=== PATIENT | male | born 1955 | race Caucasian/White ===

== ENCOUNTER 2018-06-24 09:52 | Emergency (ER) | payer BC ==
--- NOTE | 2018-06-24 10:26 | EDM.PDOC ---
ED HPI GENERAL MEDICAL PROBLEM - General Chief Complaint: Respiratory Problem Stated Complaint: chills, cough, pluerisy Time Seen by Provider: 06/24/18 10:09 Source of Information: Reports: Patient History Limitations: Reports: No Limitations - History of Present Illness INITIAL COMMENTS - FREE TEXT/NARRATIVE: Patient comes with 3-4 week history of cough. Has not improved. Intermittent chills/hot flashes but no specific fevers. Does smoke a few times a week. Chest discomfort with coughing, but not with breathing. Mild SOB. Green sputum/ minimal amount. Not coughing much up. Similar episodes one year ago that improved after several rounds of antibiotics. Denies HEENT changes. No sore throat/congestion. No hematemesis. No GI changes such as nausea/emesis/loose stools. Denies abdominal pain. No other new pain complaints. Does have his baseline neuropathy pain. No new neuro changes. Works ab [employer]. Pluertic Chest Pain Score (Numeric/FACES): 9 Hand/Feet Neuropathy Pain Score (Numeric/FACES): 10 - Related Data Allergies Allergy/AdvReac Type Severity Reaction Status Date / Time morphine Allergy Itching Verified 06/24/18 09:54 Home Meds: Home Meds Albuterol [Ventolin HFA] 1 puff INH Q6H PRN #1 puff 06/24/18 [Rx] Doxycycline [Vibramycin] 100 mg PO BID #10 cap 06/24/18 [Rx] Gabapentin [Neurontin] 300 mg PO QID 06/24/18 [History] Hydrocodone/Acetaminophen [Hydrocodon-Acetaminophen 5-325] 1 each PO Q4HR PRN [History] fentaNYL [Duragesic] 75 mcg TD Q3D 06/24/18 [History] guaiFENesin [Robitussin] 200 mg PO Q4H PRN 06/24/18 [History] Past Medical History HEENT History: Reports: Impaired Vision Cardiovascular History: Reports: None Respiratory History: Reports: None Genitourinary History: Reports: None Neurological History: Reports: None Psychiatric History: Reports: None Oncologic (Cancer) History: Reports: Colon, Prostate Dermatologic History: Reports: None - Infectious Disease History Infectious Disease History: Reports: None - Past Surgical History Head Surgeries/Procedures: Reports: None HEENT Surgical History: Reports: None Cardiovascular Surgical History: Reports: None Respiratory Surgical History: Reports: None GI Surgical History: Reports: Colon, Hernia, Abdominal, Other (See Below) Other GI Surgeries/Procedures: colon resection Male Surgical History: Reports: Prostate Biopsy, Prostatectomy Social & Family History - Tobacco Use Smoking Status *Q: Current Some Day Smoker ED ROS GENERAL - Review of Systems Review Of Systems: ROS reveals no pertinent complaints other than HPI. ED EXAM, GENERAL - Physical Exam Exam: See Below Exam Limited By: No Limitations General Appearance: Alert, WD/WN, No Apparent Distress, Other (appears tired) Eye Exam: Bilateral Eye: EOMI, PERRL Ears: Normal External Exam Nose: No: Nasal Deformity, Nasal Swelling, Nasal Drainage Throat/Mouth: Normal Lips, Normal Voice, No Airway Compromise Head: Atraumatic, Normocephalic Neck: Supple, Non-Tender Respiratory/Chest: No Respiratory Distress, Lungs Clear, Normal Breath Sounds, No Accessory Muscle Use, Chest Non-Tender Cardiovascular: Regular Rate, Rhythm, No Murmur GI/Abdominal: Soft, Non-Tender (Male) Exam: Deferred Rectal (Males) Exam: Deferred Back Exam: No: CVA Tenderness (L), CVA Tenderness (R), Muscle Spasm, Paraspinal Tenderness, Vertebral Tenderness Extremities: Normal Capillary Refill Neurological: Alert, Oriented, Normal Cognition, Other (equal strength bilaterally) Psychiatric: Normal Affect, Normal Mood Skin Exam: Warm, Dry, Intact, Normal Color Course - Vital Signs Last Recorded V/S: Last Vital Signs Temp 36.4 C 06/24/18 09:55 Pulse 87 06/24/18 09:55 Resp 18 06/24/18 09:55 BP 118/85 06/24/18 09:55 Pulse Ox 99 06/24/18 09:55 - Orders/Labs/Meds Orders: Active Orders 24 hr Category Date Time Status RT Aerosol Therapy [RC] ASDIRECTED Care 06/24/18 11:15 Ordered Chest 2V [CR] Stat Exams 06/24/18 10:11 Ordered Labs: Laboratory Tests 06/24/18 06/24/18 Range/Units 10:18 10:18 WBC 7.7 (4.0-10.2) K/uL RBC 4.86 (4.33-5.41) M/uL Hgb 14.7 (13.1-16.8) g/dL Hct 43.7 (39.0-49.0) % MCV 89.9 (84.0-98.0) fL MCH 30.2 (28.2-33.3) pg MCHC 33.6 (31.7-36.0) g/dL RDW 13.5 (11.2-14.1) % Plt Count 283 (150-350) K/uL Neut % (Auto) 82.6 H (45.0-80.0) % Lymph % (Auto) 10.9 (10.0-50.0) % [place] % (Auto) 5.3 (2.0-14.0) % Eos % (Auto) 0.9 (0.0-5.0) % Baso % (Auto) 0.3 (0.0-2.0) % Neut # (Auto) 6.38 (1.40-7.00) K/uL Lymph # (Auto) 0.84 (0.50-3.50) K/uL [place] # (Auto) 0.41 (0.00-1.00) K/uL Eos # (Auto) 0.07 (0.00-0.50) K/uL Baso # (Auto) 0.02 (0.00-0.20) K/uL Sodium 139 (136-145) mmol/L Potassium 4.0 (3.5-5.1) mmol/L Chloride 103 (98-107) mmol/L Carbon Dioxide 26.1 (21.0-32.0) mmol/L BUN 19 H (7-18) mg/dL Creatinine 0.72 (0.51-1.17) mg/dL Est Cr Clr Drug Dosing 101.08 mL/min Estimated GFR (MDRD) > 60 mL/min Glucose 134 H (74-106) mg/dL Calcium 8.7 (8.5-10.1) mg/dL Total Bilirubin 0.6 (0.2-1.0) mg/dL AST 17 (15-37) U/L ALT 23 (12-78) U/L Alkaline Phosphatase 77 (46-116) IU/L Total Protein 7.0 (6.4-8.2) g/dL Albumin 3.6 (3.4-5.0) g/dL Meds: Medications Discontinued Medications Generic Name Dose Route Start Last Admin Trade Name Freq PRN Reason Stop Dose Admin Albuterol/Ipratropium 3 ml 06/24/18 11:15 06/24/18 11:31 Duoneb 3.0-0.5 Mg/3 Ml NEB 06/24/18 11:16 3 ml ONETIME ONE Administration - Radiology Interpretation Free Text/Narrative:: Xray of chest showed no focal infiltrates - Re-Assessments/Exams Free Text/Narrative Re-Assessment/Exam: 06/24/18 12:07 Normal CBC/Chem. Given prolonged course of illness and lack of improvement will treat with Doxy for 10 days. This will help cover atypical organisms. To follow up as needed if no improvement or worsening is noted. Taken off work from [employer] for 72 hours. Rx for albuterol inhaler given. Received to-go Doxy from ER stock today but will chart picker remaining pills from pharmacy. Departure - Departure Time of Disposition: 11:54 Disposition: Home, Self-Care 01 Condition: Good Clinical Impression: Bronchitis - Discharge Information *PRESCRIPTION DRUG MONITORING PROGRAM REVIEWED*: Not Applicable *COPY OF PRESCRIPTION DRUG MONITORING REPORT IN PATIENT JOSE: Not Applicable Prescriptions: Albuterol [Ventolin HFA] 1 puff INH Q6H PRN #1 puff PRN Reason: Cough Doxycycline [Vibramycin] 100 mg PO BID #10 cap Instructions: How to Use a Metered Dose Inhaler Referrals: Marko Townsend PA-C [Primary Care Provider] - Forms: ED Department Discharge Additional Instructions: Follow up as needed if your symptoms worsen or do not show improvement by end of antibiotic course. Avoid smoking. Of course completely quitting smoking is advised. See if the inhaler helps with the coughing/chest tightness. - My Orders Last 24 Hours: My Active Orders 06/24/18 10:11 Chest 2V [CR] Stat 06/24/18 11:15 RT Aerosol Therapy [RC] ASDIRECTED - Assessment/Plan Last 24 Hours: My Active Orders 06/24/18 10:11 Chest 2V [CR] Stat 06/24/18 11:15 RT Aerosol Therapy [RC] ASDIRECTED
[2018-06-24 10:38] LABS: CHLORIDE,CL 103 mmol/L (98-107); SODIUM,NA 139 mmol/L (136-145)
[2018-06-24] MEDS ORDERED: Albuterol/Ipratropium 3.0-0.5 MG/3 ML Neb Soln NEB ONE (11:15)
[2018-06-24] MEDS ORDERED: Albuterol/Ipratropium 3.0-0.5 MG/3 ML Neb Soln ONE (11:25)
== END 2018-06-24 12:20 | disposition home or self-care (01) ==
LOC: LL.ED 09:52
DX: J40 Bronchitis, not specified as acute or chronic (principal); F17.290 Nicotine dependence, other tobacco product, uncomplicated; Z79.899 Other long term (current) drug therapy
CPT/HCPCS: 36415; 71046; 80053; 85025; 94640; 99284-25; J7620-GY

== ENCOUNTER 2018-10-01 13:49 | Emergency (ER) | payer BC ==
--- NOTE | 2018-10-01 14:18 | EDM.PDOC ---
ED HPI GENERAL MEDICAL PROBLEM - General Chief Complaint: General Stated Complaint: URI Symptoms Time Seen by Provider: 10/01/18 13:52 Source of Information: Reports: Patient, Family History Limitations: Reports: No Limitations - History of Present Illness INITIAL COMMENTS - FREE TEXT/NARRATIVE: Patient complains of several weeks history worsening cough. Decreased appetite. Has lost over 10 pounds since early August. Post-tussive emesis. On/off low grade temps. 101 yesterday. Loose stools one day last week, that resolved. Seen by provider, felt to have COPD related symptoms. Has not smoked now for about a month. Given inhalers, but no antibiotic course as of yet. Similar complaints noted last June. THat resolved with a course of Doxy. No other specific complaints at this time. - Related Data Allergies Allergy/AdvReac Type Severity Reaction Status Date / Time hydromorphone Allergy Itching Verified 10/01/18 13:50 Home Meds: Home Meds Albuterol [Ventolin HFA] 1 puff INH Q6H PRN #1 puff 06/24/18 [Rx] Gabapentin [Neurontin] 300 mg PO BEDTIME 06/24/18 [History] Hydrocodone/Acetaminophen [Hydrocodon-Acetaminophen 5-325] 1 - 2 each PO Q4HR PRN 06/24/18 [History] fentaNYL [Duragesic] 75 mcg TD Q3D 06/24/18 [History] guaiFENesin [Robitussin] 200 mg PO Q4H PRN 06/24/18 [History] ALPRAZolam [Alprazolam] 1 tab PO BEDTIME 10/01/18 [History] Benzonatate [Tessalon Perle] 100 mg PO ASDIRECTED PRN #30 capsule 10/01/18 [Rx] Budesonide/Formoterol [Symbicort 80-4.5 MCG] 1 puff INH Q12HR 10/01/18 [History] Chlorphenir/Phenyleph/Aspirin [Brigida-Baird Plus Cold Eff] 1 each PO BID PRN 02/09 [History] Doxycycline [Vibramycin] 100 mg PO BID #20 cap 10/01/18 [Rx] Sertraline HCl 50 mg PO BEDTIME 10/01/18 [History] Tamsulosin HCl 0.4 mg PO DAILY 10/01/18 [History] predniSONE [Prednisone] 20 mg PO DAILY #5 tablet 10/01/18 [Rx] Past Medical History HEENT History: Reports: Impaired Vision Cardiovascular History: Reports: None Respiratory History: Reports: None, COPD Genitourinary History: Reports: None Neurological History: Reports: Neuropathy, 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) Psychiatric History: Reports: None Oncologic (Cancer) History: Reports: Colon, Prostate Dermatologic History: Reports: None - Infectious Disease History Infectious Disease History: Reports: None - Past Surgical History Head Surgeries/Procedures: Reports: None HEENT Surgical History: Reports: None Cardiovascular Surgical History: Reports: None Respiratory Surgical History: Reports: None GI Surgical History: Reports: Colon, Hernia, Abdominal, Other (See Below) Other GI Surgeries/Procedures: colon resection Male Surgical History: Reports: Prostate Biopsy, Prostatectomy Social & Family History - Tobacco Use Tobacco Use Within Last Twelve Months: Cigarettes (Just quit one month ago) - Caffeine Use Caffeine Use: Reports: Soda Caffeine Use Comment: very little use - Recreational Drug Use Recreational Drug Use: No Drug Use in Last 12 Months: No ED ROS GENERAL - Review of Systems Review Of Systems: See Below Constitutional: Reports: Fever, Chills, Malaise, Fatigue, Decreased Appetite, Weight Loss. Denies: Diaphoresis HEENT: Reports: Rhinitis Respiratory: Reports: Cough, Sputum (green/yellow). Denies: Wheezing, Pleuritic Chest Pain, Hemoptysis Cardiovascular: Reports: No Symptoms. Denies: Chest Pain GI/Abdominal: Reports: Decreased Appetite, Nausea, Vomiting. Denies: Abdominal Pain, Constipation, Diarrhea, Difficulty Swallowing : Reports: No Symptoms Musculoskeletal: Reports: No Symptoms Skin: Reports: No Symptoms Neurological: Reports: No Symptoms Psychiatric: Reports: No Symptoms Hematologic/Lymphatic: Reports: No Symptoms ED EXAM, GENERAL - Physical Exam Exam: See Below Exam Limited By: No Limitations General Appearance: Alert, No Apparent Distress, Thin Eye Exam: Bilateral Eye: EOMI, PERRL Ears: Normal External Exam Nose: No: Nasal Deformity, Nasal Swelling, Nasal Drainage Throat/Mouth: Normal Lips, Normal Voice, No Airway Compromise, Other (Patient wears dentures) Head: Atraumatic, Normocephalic Neck: Supple, Non-Tender, Full Range of Motion Respiratory/Chest: No Respiratory Distress, Decreased Breath Sounds (throughout) , Rhonchi (scattered infrequent rhonchi bilaterally). No: Crackles, Rales, Wheezing Cardiovascular: Regular Rate, Rhythm, No Murmur GI/Abdominal: Soft, Non-Tender (Male) Exam: Deferred Rectal (Males) Exam: Deferred Back Exam: No: CVA Tenderness (L), CVA Tenderness (R), Muscle Spasm Extremities: Normal Capillary Refill Neurological: Alert, Oriented, Normal Cognition, Normal Gait Psychiatric: Normal Affect, Normal Mood Skin Exam: Warm, Dry, Intact, Normal Color Course - Vital Signs Last Recorded V/S: Last Vital Signs Temp 36.8 C 10/01/18 13:50 Pulse 63 10/01/18 13:50 Resp 16 10/01/18 13:50 BP 117/70 10/01/18 13:50 Pulse Ox 98 10/01/18 13:50 - Orders/Labs/Meds Orders: Active Orders 24 hr Category Date Time Status Chest 2V [CR] Stat Exams 10/01/18 14:02 Ordered Labs: Laboratory Tests 10/01/18 10/01/18 Range/Units 14:10 14:10 WBC 8.5 (4.0-10.2) K/uL RBC 4.45 (4.33-5.41) M/uL Hgb 13.3 (13.1-16.8) g/dL Hct 39.3 (39.0-49.0) % MCV 88.3 (84.0-98.0) fL MCH 29.9 (28.2-33.3) pg MCHC 33.8 (31.7-36.0) g/dL RDW 13.2 (11.2-14.1) % Plt Count 295 (150-350) K/uL Neut % (Auto) 63.4 (45.0-80.0) % Lymph % (Auto) 24.1 (10.0-50.0) % [place] % (Auto) 8.8 (2.0-14.0) % Eos % (Auto) 3.5 (0.0-5.0) % Baso % (Auto) 0.2 (0.0-2.0) % Neut # (Auto) 5.38 (1.40-7.00) K/uL Lymph # (Auto) 2.05 (0.50-3.50) K/uL [place] # (Auto) 0.75 (0.00-1.00) K/uL Eos # (Auto) 0.30 (0.00-0.50) K/uL Baso # (Auto) 0.02 (0.00-0.20) K/uL Sodium 143 (136-145) mmol/L Potassium 4.0 (3.5-5.1) mmol/L Chloride 107 (98-107) mmol/L Carbon Dioxide 27.8 (21.0-32.0) mmol/L BUN 14 (7-18) mg/dL Creatinine 0.66 (0.51-1.17) mg/dL Est Cr Clr Drug Dosing 106.67 mL/min Estimated GFR (MDRD) > 60 mL/min Glucose 109 H (74-106) mg/dL Calcium 8.4 L (8.5-10.1) mg/dL Magnesium 1.8 (1.8-2.4) mg/dL Total Bilirubin 0.2 (0.2-1.0) mg/dL AST 14 L (15-37) U/L ALT 21 (12-78) U/L Alkaline Phosphatase 81 (46-116) IU/L Total Protein 6.5 (6.4-8.2) g/dL Albumin 3.3 L (3.4-5.0) g/dL - Radiology Interpretation Free Text/Narrative:: Changes consistent with COPD noted. No obvious focal infiltrate/effusion noted. - Re-Assessments/Exams Free Text/Narrative Re-Assessment/Exam: Given persistent cough/fevers for several weeks, will cover with Doxy. It is a bit concerning that patient has dropped more than 10 pounds since about a month ago. This is also his second round experiencing prolonged cough and respiratory complaints/fevers recently. He was seen for very similar complaints , albeit the weight loss, in June. Unless significant improvement noted in cough complaint, energy levels, and weight are noted, recommend follow up with primary provider and consideration of CT scan of chest. Given his cancer history it would be prudent to rule out the potential of tumor or other insidious process contributing to his recent respiratory complaints. Patient is in agreement with this plan. Course of Doxy, Prednisone, PRN Tessalon ordered. Precautions reviewed. Departure - Departure Time of Disposition: 14:31 Disposition: Home, Self-Care 01 Condition: Good Clinical Impression: Bronchitis - Discharge Information *PRESCRIPTION DRUG MONITORING PROGRAM REVIEWED*: Not Applicable *COPY OF PRESCRIPTION DRUG MONITORING REPORT IN PATIENT JOSE: Not Applicable Prescriptions: Benzonatate [Tessalon Perle] 100 mg PO ASDIRECTED PRN #30 capsule PRN Reason: Cough Doxycycline [Vibramycin] 100 mg PO BID #20 cap predniSONE [Prednisone] 20 mg PO DAILY #5 tablet Referrals: Marko Townsend PA-C [Primary Care Provider] - Forms: ED Department Discharge Additional Instructions: No work tonight if you continue to not feel well. Use the Albuterol inhaler every 4-6 hours to help with coughing. You were given Prednisone and Tessalon today to also help with cough. Doxy for 10 days prescribed to cover for possible infection. If you continue to lose weight/not feel well/no significant improvement in breathing noted--please get re-evaluated as we discussed in the ER. You may benefit from a CT scan of the chest to see if there is another problem causing the weight loss and respiratory symptoms. - My Orders Last 24 Hours: My Active Orders 10/01/18 14:02 Chest 2V [CR] Stat - Assessment/Plan Last 24 Hours: My Active Orders 10/01/18 14:02 Chest 2V [CR] Stat
[2018-10-01 14:30] LABS: CHLORIDE,CL 107 mmol/L (98-107); SODIUM,NA 143 mmol/L (136-145)
== END 2018-10-01 14:50 | disposition home or self-care (01) ==
LOC: LL.ED 13:49
DX: J40 Bronchitis, not specified as acute or chronic (principal); J44.9 Chronic obstructive pulmonary disease, unspecified; Z79.899 Other long term (current) drug therapy; Z88.8 Allergy status to other drugs, medicaments and biological substances
CPT/HCPCS: 36415; 71046; 80053; 83735; 85025; 99283-25